=== PATIENT | female | born 2000 | race Caucasian/White ===

== ENCOUNTER 2020-04-06 10:30 | Emergency (ER) | payer OTHER ==
[2020-04-06] MEDS ORDERED: LORazepam 1 MG Tab PO ONE (11:40)
--- NOTE | 2020-04-06 11:44 | EDM.PDOC ---
ED HPI GENERAL MEDICAL PROBLEM - General Chief Complaint: Abdominal Pain Stated Complaint: SLEEPLESS,STOMACH ACHE Time Seen by Provider: 04/06/20 11:31 Source of Information: Reports: Patient, RN Notes Reviewed History Limitations: Reports: No Limitations - History of Present Illness INITIAL COMMENTS - FREE TEXT/NARRATIVE: 19-year-old male who is transitioning to female presents emergency department today with complaint of burning and tingling in his hands denies any trauma states it started about 3 days prior no nausea vomiting no shortness of breath does have some abdominal pain but admits to being very hungry and has not eaten in a while also admits to poor sleeping over the last 3 days Abdomen Pain Score (Numeric/FACES): 3 - Related Data Allergies Allergy/AdvReac Type Severity Reaction Status Date / Time No Known Allergies Allergy Verified 04/06/20 11:12 Home Meds: Home Meds Citalopram [Citalopram HBr] 20 mg PO DAILY 04/06/20 [History] Progesterone, Micronized [Progesterone] 200 mg PO DAILY 04/06/20 [History] QUEtiapine Fumarate [Seroquel] 150 mg PO BEDTIME 04/06/20 [History] Spironolactone [Aldactone] 200 mg PO DAILY 04/06/20 [History] estradioL [Estradiol] 2 mg PO DAILY 04/06/20 [History] 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 DID (identity disorder) Social & Family History - Tobacco Use Tobacco Use Status *Q: Current Every Day Tobacco User Years of Tobacco use: 6 Packs/Tins Daily: 1 - Caffeine Use Caffeine Use: Reports: Energy Drinks - Recreational Drug Use Recreational Drug Use: No ED ROS GENERAL - Review of Systems Review Of Systems: See Below Constitutional: Reports: No Symptoms HEENT: Reports: No Symptoms Respiratory: Reports: No Symptoms Cardiovascular: Reports: No Symptoms GI/Abdominal: Reports: No Symptoms : Reports: No Symptoms Musculoskeletal: Reports: No Symptoms Neurological: Reports: Numbness, Tingling ED EXAM, GENERAL - Physical Exam Exam: See Below Exam Limited By: No Limitations General Appearance: Alert, WD/WN, No Apparent Distress Respiratory/Chest: No Respiratory Distress, Lungs Clear, Normal Breath Sounds, No Accessory Muscle Use, Chest Non-Tender Cardiovascular: Regular Rate, Rhythm, No Murmur GI/Abdominal: Soft, Non-Tender Neurological: Alert, Oriented, CN II-XII Intact, No Motor/Sensory Deficits Course - Vital Signs Last Recorded V/S: Last Vital Signs Temp 97.8 F 04/06/20 11:05 Pulse 82 04/06/20 11:05 Resp 16 04/06/20 11:05 BP 144/81 H 04/06/20 11:05 Pulse Ox 92 L 04/06/20 11:05 - Orders/Labs/Meds Labs: Laboratory Tests 04/06/20 04/06/20 04/06/20 Range/Units 11:56 11:56 14:02 WBC 8.4 (4.5-11.0) K/uL RBC 4.59 (3.30-5.50) M/uL Hgb 13.5 (12.0-15.0) g/dL Hct 40.8 (36.0-48.0) % MCV 89 (80-98) fL MCH 29 (27-31) pg MCHC 33 (32-36) % Plt Count 369 (150-400) K/uL Neut % (Auto) 64 (36-66) % Lymph % (Auto) 24 (24-44) % [place] % (Auto) 11 H (2-6) % Eos % (Auto) 1 L (2-4) % Baso % (Auto) 1 (0-1) % Sodium 142 (140-148) mmol/L Potassium 4.2 (3.6-5.2) mmol/L Chloride 103 (100-108) mmol/L Carbon Dioxide 26 (21-32) mmol/L Anion Gap 13.3 (5.0-14.0) mmol/L BUN 10 (7-18) mg/dL Creatinine 0.9 (0.6-1.0) mg/dL Est Cr Clr Drug Dosing 86.82 mL/min Estimated GFR (MDRD) > 60 (>60) Glucose 97 (74-106) mg/dL Calcium 9.1 (8.5-10.1) mg/dL Magnesium 2.2 (1.8-2.4) mg/dL Total Bilirubin 0.3 (0.2-1.0) mg/dL AST 15 (15-37) U/L ALT 25 (12-78) U/L Alkaline Phosphatase 80 (46-116) U/L Total Protein 7.2 (6.4-8.2) g/dL Albumin 4.1 (3.4-5.0) g/dL Globulin 3.1 (2.3-3.5) g/dL Albumin/Globulin Ratio 1.3 (1.2-2.2) TSH, Ultra Sensitive 1.488 (0.358-3.740) uIU/mL Urine Opiates Screen Negative (NEGATIVE) Ur Oxycodone Screen Negative (NEGATIVE) Urine Methadone Screen Negative (NEGATIVE) Ur Propoxyphene Screen Negative (NEGATIVE) Ur Barbiturates Screen Negative (NEGATIVE) Ur Tricyclics Screen Negative (NEGATIVE) Ur Phencyclidine Scrn Negative (NEGATIVE) Ur Amphetamine Screen Negative (NEGATIVE) U Methamphetamines Scrn Negative (NEGATIVE) Urine MDMA Screen Negative (NEGATIVE) U Benzodiazepines Scrn Negative (NEGATIVE) U Cocaine Metab Screen Negative (NEGATIVE) U Marijuana (THC) Screen Negative (NEGATIVE) Meds: Medications Discontinued Medications Generic Name Dose Route Start Last Admin Trade Name Freq PRN Reason Stop Dose Admin Lorazepam 1 mg 04/06/20 11:40 04/06/20 11:45 Ativan PO 04/06/20 11:41 1 mg ONETIME ONE Administration Departure - Departure Time of Disposition: 15:36 Disposition: Home, Self-Care 01 Condition: Poor Clinical Impression: Numbness and tingling in right hand - Discharge Information Referrals: PCP,None [Primary Care Provider] - Forms: ED Department Discharge Additional Instructions: Please followup with your primary care provider in 3-5 days if not better, please call return to the emergency department with worsening of symptoms. Sepsis Event Note (ED) - Evaluation Sepsis Screening Result: No Definite Risk - Focused Exam Vital Signs: Vital Signs Temp Pulse Resp BP Pulse Ox 04/06/20 11:05 97.8 F 82 16 144/81 H 92 L 04/06/20 11:01 97.8 F 82 16 144/81 H 92 L - Assessment/Plan Plan: Assessment Acuity = acute Site and laterality = burning in the right hand Etiology = unknown Manifestations = none Location of injury = Home Lab values = CBC, CMP, troponin, urine drug screen all negative Plan She was able to get some rest with the Ativan, recommend follow-up with primary care in the next 3 to 5 days for further evaluation This note was dictated using Tam[employer] voice recognition software please call with any questions on syntax or grammar.
== END 2020-04-06 16:03 | disposition home or self-care (01) ==
LOC: JP.ED 10:30
DX: R20.0 Anesthesia of skin (principal); R20.2 Paresthesia of skin; Z79.899 Other long term (current) drug therapy; Z72.0 Tobacco use
CPT/HCPCS: 36415; 80053; 80305; 83735; 84443; 85025; 99284; A9270

== ENCOUNTER 2020-04-24 05:01 | Emergency (ER) | payer OTHER ==
[2020-04-24] MEDS ORDERED: Melatonin 3 MG Tab PO STA (05:39)
--- NOTE | 2020-04-24 05:46 | EDM.PDOC ---
ED HPI GENERAL MEDICAL PROBLEM - General Chief Complaint: General Stated Complaint: INSOMNIA AND BRAIN SHAKES Time Seen by Provider: 04/24/20 05:19 Source of Information: Reports: Patient, Old Records History Limitations: Reports: No Limitations - History of Present Illness INITIAL COMMENTS - FREE TEXT/NARRATIVE: Alex is a 19-year-old transgender male identifying his female who presents to the ED via [facility] with complaint of "brain shakes" and insomnia. The patient reports that she is homeless and has not slept in 2 weeks. She has been out of her citalopram and Seroquel for the last several months and has not contacted her primary care provider about obtaining new prescriptions. She reports that she has been having electric bolts in her head and in her body over the last 2 days. She is tried numerous things to get to sleep including hot soup and a cold bedroom, but reports that nothing is working. The patient reports that she was seen prior for the same thing and was given lorazepam and allowed to sleep for several hours in the ED. She had initially asked the nurse about getting checked for STIs, however, did not broach that subject with me. 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 - Related Data Allergies Allergy/AdvReac Type Severity Reaction Status Date / Time No Known Allergies Allergy Verified 04/24/20 05:11 Home Meds: Home Meds Citalopram [Citalopram HBr] 20 mg PO DAILY 04/06/20 [History] Progesterone, Micronized [Progesterone] 200 mg PO DAILY 04/06/20 [History] QUEtiapine Fumarate [Seroquel] 150 mg PO BEDTIME 04/06/20 [History] Spironolactone [Aldactone] 200 mg PO DAILY 04/06/20 [History] estradioL [Estradiol] 2 mg PO DAILY 04/06/20 [History] Citalopram Hydrobromide [Celexa] 20 mg PO DAILY 30 Days #30 tablet 04/24/20 [Rx] QUEtiapine [SEROquel XR] 150 mg PO BEDTIME 30 Days #30 tab.sr 04/24/20 [Rx] Past Medical History HEENT History: Reports: None Cardiovascular History: Reports: None Respiratory History: Reports: None Gastrointestinal History: Reports: None Genitourinary History: Reports: None 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 DID (identity disorder) Endocrine/Metabolic History: Reports: None Hematologic History: Reports: None Immunologic History: Reports: None Oncologic (Cancer) History: Reports: None Dermatologic History: Reports: None - Infectious Disease History Infectious Disease History: Reports: None Social & Family History - Tobacco Use Tobacco Use Status *Q: Current Every Day Tobacco User Years of Tobacco use: 7 Packs/Tins Daily: 0.7 - Caffeine Use Caffeine Use: Reports: Coffee, Energy Drinks, Soda - Recreational Drug Use Recreational Drug Use: No ED ROS GENERAL - Review of Systems Review Of Systems: See Below Constitutional: Reports: Other (Insomnia) HEENT: Reports: No Symptoms Respiratory: Reports: No Symptoms Cardiovascular: Reports: No Symptoms Endocrine: Reports: No Symptoms GI/Abdominal: Reports: No Symptoms : Reports: No Symptoms Musculoskeletal: Reports: Neck Pain (Intermittent pain like lightning bolts in her head, neck, and body for the last several days) Skin: Reports: No Symptoms Neurological: Reports: Other (Intermittent lightening bolt type pain in her head, neck, and body) Psychiatric: Reports: No Symptoms, Other (Patient is noncompliant with her Seroquel and citalopram which she has been out of for the last 2 months but has not reached out to her primary care provider for a refill.) Hematologic/Lymphatic: Reports: No Symptoms Immunologic: Reports: No Symptoms ED EXAM, GENERAL - Physical Exam Exam: See Below Exam Limited By: No Limitations General Appearance: Alert, No Apparent Distress, Lethargic Eye Exam: Bilateral Eye: PERRL Head: Atraumatic Neurological: Alert, Oriented, Normal Cognition, Normal Gait, No Motor/Sensory Deficits Psychiatric: Normal Affect, Normal Mood Course - Vital Signs Last Recorded V/S: Last Vital Signs Temp 36.7 C 04/24/20 05:18 Pulse 90 04/24/20 05:18 Resp 16 04/24/20 05:18 BP 140/78 04/24/20 05:18 Pulse Ox 96 04/24/20 05:18 - Orders/Labs/Meds Meds: Medications Discontinued Medications Generic Name Dose Route Start Last Admin Trade Name Freq PRN Reason Stop Dose Admin Melatonin 9 mg 04/24/20 05:39 04/24/20 05:46 Melatonin PO 04/24/20 05:40 9 mg NOW STA Administration - Re-Assessments/Exams Free Text/Narrative Re-Assessment/Exam: 04/24/20 06:01 I explained to the patient that we would not be giving her a sedative and allowing her to sleep here for several hours as this is not a hotel. I was happy to give her melatonin and allow her to go home to sleep. She may rest out in the lobby, however, it is not appropriate for her to lounge in the emergency room bed. I did provide her with a refill of her Seroquel and her citalopram which she can get filled at the pharmacy when they open. The patient is upset because I did not allow her to stay back in the room to sleep nor did I give her lorazepam which is what she had received when she was here prior by one of my colleagues. I did explain to her that this is not the proper use of an emergency room. Departure - Departure Time of Disposition: 05:40 Disposition: Home, Self-Care 01 Condition: Good Clinical Impression: Serotonin withdrawal syndrome without complication Insomnia Qualifiers: Insomnia type: unspecified Qualified Code(s): G47.00 - Insomnia, unspecified - Discharge Information *PRESCRIPTION DRUG MONITORING PROGRAM REVIEWED*: Not Applicable *COPY OF PRESCRIPTION DRUG MONITORING REPORT IN PATIENT RANJAN: Not Applicable Prescriptions: Citalopram Hydrobromide [Celexa] 20 mg PO DAILY 30 Days #30 tablet QUEtiapine [SEROquel XR] 150 mg PO BEDTIME 30 Days #30 tab.sr Instructions: Insomnia Referrals: PCP,None [Primary Care Provider] - Forms: ED Department Discharge Care Plan Goals: I have provided refill for your citalopram and your Seroquel which you can fill at any pharmacy when they open this morning. In addition we have given you a dose of melatonin so that she can go home and sleep. Follow-up with your primary care provider in [place] for additional medication. Sepsis Event Note (ED) - Evaluation Sepsis Screening Result: No Definite Risk - Focused Exam Vital Signs: Vital Signs Temp Pulse Resp BP Pulse Ox 04/24/20 05:18 36.7 C 90 16 140/78 96 - Problem List & Annotations (1) Insomnia SNOMED Code(s): 022957201 Code(s): G47.00 - INSOMNIA, UNSPECIFIED Status: Acute Priority: Low Current Visit: Yes Qualifiers: Insomnia type: unspecified Qualified Code(s): G47.00 - Insomnia, unspecified (2) Serotonin withdrawal syndrome without complication SNOMED Code(s): 289844077 Code(s): T43.205A - ADVERSE EFFECT OF UNSPECIFIED ANTIDEPRESSANTS, INIT ENCNTR Status: Acute Priority: Low Current Visit: Yes - Problem List Review Problem List Initiated/Reviewed/Updated: Yes
== END 2020-04-24 06:05 | disposition home or self-care (01) ==
LOC: EEVIPCON 05:01 → JP.ED 05:01
DX: G47.00 Insomnia, unspecified (principal); F19.239 Other psychoactive substance dependence with withdrawal, unspecified; Z79.899 Other long term (current) drug therapy; Z72.0 Tobacco use; Z59.0 Homelessness
CPT/HCPCS: 99283; A9270